=== PATIENT | female | born 1945 | race Caucasian/White ===

== ENCOUNTER 2017-09-02 08:43 | Day surgery (SDC) | payer MEDICARE ==
--- NOTE | 2017-09-03 12:31 | Operative Note ---
Dictated by Dr. Raudel Mueller for Dr. Pride DATE OF SURGERY: 09/02/2017 PREOPERATIVE DIAGNOSIS: Screening colonoscopy. POSTOPERATIVE DIAGNOSIS: Normal colonoscopy to cecum. OPERATION: COLONOSCOPY. ENDOSCOPIST: Cruz Pride DO [employer] DISTRIBUTOR: Dr. Raudel Mueller ANESTHESIA: Anesthesia was performed by the Anesthesia Department. COMPLICATIONS: None. INDICATIONS FOR PROCEDURE: A 72-year-old female with history of prior colonoscopy with hyperplastic polyp who presents for screening colonoscopy. The patient denies any family history of colon cancer, GI bleed, changes in bowel habits, or weight loss. PROCEDURE: Procedure was totally explained to the patient including risks, benefits, and alternatives. The patient had opportunity to have questions answered. Patient agreed to procedure and signed written informed consent. The patient was brought to the endoscopy suite and was placed on the left lateral decubitus position. Anesthesia was begun and procedure began with introduction of a well-lubricated Olympus [id number] colonoscope to rectum all the way to cecum where appendiceal orifice and ileocecal valve were identified. Scope was then withdrawn carefully and slowly from cecum, ascending colon, transverse colon, descending colon, sigmoid colon, and rectum without any abnormalities found. Scope was retroflexed at the rectum which was normal. Scope was placed back into neutral position and was withdrawn completely. Patient tolerated the procedure well without any complications. RECOMMENDATION: 1. Resume medication. 2. Repeat colonoscopy in 10 years pending health at the time given her age. As always, thank you for allowing me to participate in the care of your patient. CC: DO HAI Kilpatrick
== END 2017-09-02 10:35 | disposition home or self-care (01) ==
LOC: HOP 08:43
PROVIDERS: ATTEND Internal Medicine Gastroenterology
DX: Z12.11 Encounter for screening for malignant neoplasm of colon (principal)
CPT/HCPCS: 00812; G0121